=== PATIENT | male | born 1975 | race Caucasian/White ===

== ENCOUNTER 2023-09-26 02:00 | Emergency (ER) | payer MEDICARE, MEDICAID ==
[~2023-09-26] VITALS: Ht 170.2 cm; Wt 90.7 kg
[2023-09-26 02:03] VITALS: BP 147/92; PULSE 116; RESP 20; TEMP 98.2; O2SAT 95
[2023-09-26] MEDS: NACL 0.9% 1,000 ML IV ONE (02:16)
[2023-09-26] MEDS: ACETAMINOPHEN EXTRA STRENGTH 500 MG TAB PO ONE (02:31)
[2023-09-26 03:30] VITALS: BP 120/76; PULSE 89; RESP 13; TEMP 98.2; O2SAT 95
== END 2023-09-26 03:30 | disposition home or self-care (01) ==
LOC: MED 02:00
DX: R56.9 Unspecified convulsions (principal); R03.0 Elevated blood-pressure reading, without diagnosis of hypertension; E11.9 Type 2 diabetes mellitus without complications; I50.9 Heart failure, unspecified; Z98.890 Other specified postprocedural states
CPT/HCPCS: 96360; 99283; J7030